=== PATIENT | male | born 1955 | race Caucasian/White ===

== ENCOUNTER 2017-01-03 12:47 | Inpatient (IN) | payer OTHER ==
[~2017-01-03] VITALS: Wt 78.5 kg
[2017-01-03] MEDS ORDERED: ASPIRIN 325 MG TAB PO STA (15:15)
[2017-01-03 15:39] LABS: ADD SCAN DIFF NO
[2017-01-03 15:43] LABS: ABNORMAL IP MESSAGE 1; HEMOGLOBIN 14.1 g/dl (14.0-18.0); MEAN CORPUSCULAR HEMOGLOBIN 31.5 pg (29.0-33.0); MEAN CORPUSCULAR HGB CONC 35.3 g/dl (32.0-37.0); MEAN CORPUSCULAR VOLUME 89.3 fl (82.0-101.0); MEAN PLATELET VOLUME 13.8 fl (7.4-10.4); PLATELET COUNT 111 10^3/UL (140-415); RED BLOOD COUNT 4.48 10^6/ul (4.70-6.10); RED CELL DISTRIBUTION WIDTH 12.4 % (11.5-14.5)
--- NOTE | 2017-01-03 15:48 | RADRPT ---
PROCEDURE: XR Chest. CLINICAL INDICATION: Chest pain. TECHNIQUE: Single frontal view. COMPARISON: None. FINDINGS: There is mild left basilar atelectasis. The lungs are otherwise clear. The heart size is normal. There is no pleural effusion. There is no pneumothorax. IMPRESSION: 1. Mild left basilar atelectasis. 2. Otherwise normal chest x-ray. RPTAT: QQ .Jarod Bui MD, MD Date Time Electronically viewed and signed by .Jarod Bui MD, on 01/03/2017 15:48 .R/
--- NOTE | 2017-01-03 15:52 | ERA ---
ER Documentation Chief Complaint Date/Time DATE: 01/03/17 TIME: 15:49 Chief Complaint PALPITATION AND SOB WITH GEN WEAKNESS WITH NEW ONSET A FIB ON EKG HPI This 61-year-old male presents with palpitations, chest pressure, some mild shortness of breath. He initially presented to his doctor's office and was sent to the ER after his EKG revealed A. fib with RVR. He states that he only has chest pressure but no shortness of breath. He also has no nausea. ROS All systems reviewed and are negative except as per history of present illness. Medications Home Meds Reported Medications Insulin Glargine* (Lantus*) 100 Unit/Ml Soln, 23 UNIT SC QHS, #1 VIAL 01/03/17 Miconazole Nitrate* (Miconazole Nitrate*) 2% - 15 Gm Cr, 1 APPLIC TOP BID Y for AFFECTED AREA, TUB 01/03/17 Naproxen* (Naproxen*) 375 Mg Tablet, 375 MG PO BID, TAB 01/03/17 Omeprazole* (Omeprazole*) 20 Mg Capsule.dr, 20 MG PO DAILY, #30 CAP 01/03/17 Glipizide* (Glipizide*) 10 Mg Tablet, 10 MG PO BEFORE MEALS, TAB TID 01/03/17 Sitagliptin* (Januvia*) 100 Mg Tablet, 100 MG PO DAILY, #30 TAB 01/03/17 Lisinopril* (Lisinopril*) 10 Mg Tablet, 10 MG PO DAILY, #30 TAB 01/03/17 Metformin Hcl* (Metformin Hcl*) 1,000 Mg Tablet, 1000 MG PO WITH BREAKFAST DINNE , #60 TAB 01/03/17 Simvastatin* (Zocor*) 20 Mg Tablet, 20 MG PO QHS, #30 TAB 01/03/17 Discontinued Reported Medications Miconazole Nitrate* (Miconazole*) 2% - 45 Gm Cr, 1 APPFUL VAGINAL HS, #1 TUB 01/03/17 Allergies Allergies: Coded Allergies: No Known Allergy (Unverified , 01/03/17) PMhx/Soc History of Surgery: No Anesthesia Reaction: No Hx Neurological Disorder: No Hx Respiratory Disorders: No Hx Cardiac Disorders: Yes (HTN) Hx Psychiatric Problems: No Hx Miscellaneous Medical Probl: Yes (DM) Hx Alcohol Use: No Hx Substance Use: No Hx Tobacco Use: No Smoking Status: Never smoker Physical Exam Vitals Vital Signs Date Time Temp Pulse Resp B/P Pulse Ox O2 Delivery O2 Flow Rate FiO2 01/03/17 18:40 98.7 76 21 118/74 99 Room Air 01/03/17 17:49 74 20 114/84 96 Room Air 01/03/17 12:51 98.8 85 20 113/68 98 Physical Exam Const: [] Mild distress Head: Atraumatic Eyes: Normal Conjunctiva ENT: Normal External Ears, Nose and Mouth. Neck: Full range of motion..~ No meningismus. Resp: Clear to auscultation bilaterally Cardio: Regular rate and rhythm, no murmurs Abd: Soft, non tender, non distended. Normal bowel sounds Skin: No petechiae or rashes Back: No midline or flank tenderness Ext: No cyanosis, or edema Neur: Awake and alert and oriented 3, no focal deficits Psych: Normal Mood and Affect Result Diagram: 01/03/17 1530 01/03/17 1530 Results 24 hrs Laboratory Tests Test 01/03/17 15:30 White Blood Count 8.010^3/ul Red Blood Count 4.4810^6/ul Hemoglobin 14.1g/dl Hematocrit 40.0% Mean Corpuscular Volume 89.3fl Mean Corpuscular Hemoglobin 31.5pg Mean Corpuscular Hemoglobin Concent 35.3g/dl Red Cell Distribution Width 12.4% Platelet Count 44525^3/UL Mean Platelet Volume 13.8fl Neutrophils % 63.0% Band Neutrophils % 1.0% Lymphocytes % 25.0% Monocytes % 7.0% Eosinophils % 4.0% Neutrophils # 5.010^3/ul Lymphocytes # 2.010^3/ul Monocytes # 0.610^3/ul Eosinophils # 0.310^3/ul Platelet Estimate PLT APPEAR ADEQUATE Prothrombin Time 13.4Sec Prothrombin Time Ratio 1.0 INR International Normalized Ratio 1.02 Activated Partial Thromboplast Time 27.1Sec Sodium Level 137mmol/L Potassium Level 4.3mmol/L Chloride Level 100mmol/L Carbon Dioxide Level 22mmol/L Anion Gap 19 Blood Urea Nitrogen 23mg/dl Creatinine 0.72mg/dl Glucose Level 207mg/dl Calcium Level 9.0mg/dl Creatine Kinase 86IU/L Creatine Kinase Index 5.0 Creatinine Kinase MB (Mass) 4.27ng/ml Troponin I < 0.012ng/ml B-Type Natriuretic Peptide 450PG/ML Current Medications Medications (Trade) Dose Ordered Sig/Laila Route PRN Reason Start Time Stop Time Status Last Admin Dose Admin Aspirin (Aspirin) 325 mg ONCE STAT PO 01/03/17 15:15 01/03/17 15:21 DC 01/03/17 15:39 Ondansetron HCl (Zofran Inj) 4 mg ER BRIDGE PRN IV NAUSEA AND/OR VOMITING 01/03/17 17:30 01/04/17 17:29 Acetaminophen (Tylenol Tab) 650 mg ER BRIDGE PRN PO MILD PAIN/FEVER 01/03/17 17:30 01/04/17 17:29 Procedures/MDM New onset undiagnosed A. fib and chest pain. Patient was in normal sinus rhythm in the ER. However EKG with patient's name and identifying information is provided from his doctor's office and is indeed A. fib with RVR. Patient does still have chest pressure as well. Was given 325 mg aspirin. No signs of serious congestive heart failure. Spoke with patient and family. Spoke with Dr. Hassan is admitting to telemetry. EKG interpretation (from office): A. fib with RVR, rate of 148, left axis deviation, no ST or T-wave changes concerning for acute ischemia. EKG interpretation #1: Normal sinus rhythm rate of 83, left axis deviation, no ST or T-wave changes concerning for acute ischemia. Chest x-ray interpretation: I see no acute process. I see no pulmonary edema, no infiltrates, pneumothorax, no fractures. Departure Diagnosis: Primary Impression: New onset a-fib Additional Impressions: Chest pain Thrombocytopenia Condition: Serious MAVERICK MORATAYA DO Jan 03, 2017 15:52
[2017-01-03 16:04] LABS: INR 1.02; PROTIME 13.4 Sec (12.2-14.2)
[2017-01-03 16:05] LABS: PARTIAL THROMBOPLASTIN TIME 27.1 Sec (25.0-35.0)
[2017-01-03 16:10] LABS: ANION GAP 19 (8-16); BLOOD UREA NITROGEN 23 mg/dl (7-20); CARBON DIOXIDE 22 mmol/L (21-31); CHLORIDE 100 mmol/L (97-110); CREATININE 0.72 mg/dl (0.61-1.24); GLUCOSE 207 mg/dl (70-220); POTASSIUM 4.3 mmol/L (3.5-5.1); SODIUM 137 mmol/L (135-144)
[2017-01-03 16:11] LABS: CREATINE KINASE 86 IU/L (23-200)
[2017-01-03 16:21] LABS: B-TYPE NATRIURETIC PEPTIDE 450 PG/ML (0-125)
[2017-01-03 16:22] LABS: TROPONIN-I < 0.012 ng/ml (0.00-0.12)
[2017-01-03 16:23] LABS: CK-MB 4.27 ng/ml (0.0-2.4)
[2017-01-03] MEDS ORDERED: SIMV20TA PO (16:34)
[2017-01-03 16:35] LABS: EOSINOPHILS # 0.3 10^3/ul (0.0-0.5); MONOCYTE # 0.6 10^3/ul (0.3-0.9)
[2017-01-03] MEDS ORDERED: LISI10TA2 PO (16:35)
[2017-01-03] MEDS ORDERED: METF1000 PO (16:35)
[2017-01-03 16:36] LABS: PLATELET ESTIMATE PLT APPEAR ADEQUATE
[2017-01-03] MEDS ORDERED: SITA100T8 PO (16:36)
[2017-01-03] MEDS ORDERED: GLIP-95 PO (16:37)
[2017-01-03] MEDS ORDERED: OMEP20CA16 PO (16:38)
[2017-01-03] MEDS ORDERED: NAPR-685 PO (16:38)
[2017-01-03] MEDS ORDERED: MCN2C47 VAGINAL (16:40)
[2017-01-03] MEDS ORDERED: MCN2C15 TOP (16:40)
[2017-01-03] MEDS ORDERED: LANT3I SC (16:42)
[2017-01-03] MEDS ORDERED: ACETAMINOPHEN 325 MG TAB PO PRN (17:30)
[2017-01-03] MEDS ORDERED: ONDANSETRON 4 MG INJ IV PRN (17:30)
[2017-01-04] VITALS (7 sets, daily range): BP systolic 131–147; BP diastolic 81–86; PULSE 62–86; RESP 16–18; TEMP 98.3
[2017-01-04 04:59] LABS: TROPONIN-I 0.013 ng/ml (0.00-0.12)
[2017-01-04 05:01] LABS: CK-MB 2.43 ng/ml (0.0-2.4)
[2017-01-04] MEDS ORDERED: NITROGLYCERIN (SL) 0.4 MG TAB SL PRN (09:00)
[2017-01-04] MEDS ORDERED: NACL 0.9% 3 ML SYG IV SCH (09:00)
[2017-01-04] MEDS ORDERED: morphine 2 MG INJ IV PRN (09:00)
[2017-01-04] MEDS ORDERED: ONDANSETRON 4 MG INJ IV PRN (09:00)
[2017-01-04] MEDS ORDERED: ENOXAPARIN 40 MG/0.4 ML SYG SC SCH (09:00)
[2017-01-04] MEDS ORDERED: ASPIRIN 81 MG TAB PO SCH (09:00)
[2017-01-04] MEDS ORDERED: MICONAZOLE 2% 30 GM CR TOP PRN (09:00)
[2017-01-04] MEDS ORDERED: ACETAMINOPHEN 325 MG TAB PO PRN (09:00)
[2017-01-04] MEDS ORDERED: GLUCOSE GEL 15 GRAM TUBE PO PRN ×2 (10:00)
[2017-01-04] MEDS ORDERED: GLUCAGON 1 MG INJ IM PRN (10:00)
[2017-01-04] MEDS ORDERED: GLUCOSE GEL 15 GRAM TUBE BUCCAL PRN (10:00)
[2017-01-04] MEDS ORDERED: DEXTROSE 50% 50 ML SYRINGE IV PRN ×2 (10:00)
[2017-01-04] MEDS ORDERED: LINAGLIPTIN 5 MG TABLET PO SCH (11:00)
[2017-01-04] MEDS ORDERED: PANTOPRAZOLE (EC) 40 MG TAB PO SCH (11:00)
[2017-01-04] MEDS ORDERED: LISINOPRIL 10 MG TAB PO SCH (11:00)
[2017-01-04 13:37] LABS: ADD SCAN DIFF NO
[2017-01-04 13:41] LABS: ABNORMAL IP MESSAGE 1; BASOPHILS % 0.4 % (0.0-2.0); EOSINOPHILS # 0.1 10^3/ul (0.0-0.5); EOSINOPHILS % 2.1 % (0.0-7.0); HEMATOCRIT 42.2 % (42.0-52.0); HEMOGLOBIN 14.8 g/dl (14.0-18.0); LYMPHOCYTES # 1.9 10^3/ul (0.8-2.9); LYMPHOCYTES % 28.4 % (15.0-51.0); MEAN CORPUSCULAR HEMOGLOBIN 31.3 pg (29.0-33.0); MEAN CORPUSCULAR HGB CONC 35.1 g/dl (32.0-37.0); MEAN CORPUSCULAR VOLUME 89.2 fl (82.0-101.0); MONOCYTE # 0.5 10^3/ul (0.3-0.9); MONOCYTES % 7.4 % (0.0-11.0); NEUTROPHIL # 4.1 10^3/ul (1.6-7.5); NEUTROPHILS % 61.3 % (39.0-77.0); PLATELET COUNT 101 10^3/UL (140-415); RED BLOOD COUNT 4.73 10^6/ul (4.70-6.10); RED CELL DISTRIBUTION WIDTH 12.4 % (11.5-14.5); WHITE BLOOD COUNT 6.7 10^3/ul (4.8-10.8)
[2017-01-04 14:00] LABS: ALANINE AMINOTRANSFERASE 39 IU/L (13-69); ALBUMIN 4.3 g/dl (3.3-4.9); ALKALINE PHOSPHATASE 77 IU/L (42-121); ANION GAP 19 (8-16); ASPARTATE AMINO TRANSFERASE 25 IU/L (15-46); BILIRUBIN,INDIRECT 0.4 mg/dl (0-1.1); BILIRUBIN,TOTAL 0.4 mg/dl (0.2-1.3); BLOOD UREA NITROGEN 16 mg/dl (7-20); CALCIUM 9.9 mg/dl (8.4-10.2); CARBON DIOXIDE 29 mmol/L (21-31); CHLORIDE 98 mmol/L (97-110); CHOL/HDL RATIO 4.1 RATIO; CHOLESTEROL 170 mg/dl (100-200); CREATINE KINASE 57 IU/L (23-200); CREATININE 0.54 mg/dl (0.61-1.24); GLUCOSE 124 mg/dl (70-220); HDL CHOLESTEROL 41 mg/dl (30-78); MAGNESIUM 1.5 mg/dl (1.7-2.5); POTASSIUM 4.4 mmol/L (3.5-5.1); SODIUM 142 mmol/L (135-144); TOTAL PROTEIN 7.6 g/dl (6.1-8.1); TRIGLYCERIDES 177 mg/dl (0-149)
[2017-01-04 14:12] LABS: CK-MB 2.68 ng/ml (0.0-2.4); TROPONIN-I < 0.012 ng/ml (0.00-0.12)
[2017-01-04] MEDS ORDERED: MAGNESIUM SULFATE 2 GM/50 ML 50 ML IVPB ONE (14:30)
--- NOTE | 2017-01-04 14:36 | PN ---
Date/Time of Note Date/Time of Note DATE: 01/04/17 TIME: 14:31 Assessment/Plan VTE Prophylaxis VTE Prophylaxis Intervention: LMWH Lines/Catheters IV [facility] [place] Assessment/Plan Chief Complaint/Hosp Course Assessment and plan: 61-year-old male presenting with palpitations, sent in by primary doctor with atrial fibrillation with RVR, past history of diabetes and hypertension. 1. Chest pain/palpitations: Improved presently. Has ruled out for acute coronary syndrome. -We will get cardiology consult, follow-up echocardiogram results. Pain control medications as needed. 2. Diabetes: We will follow-up A1c, sliding scale insulin, Lantus 3. GI: PPI 4. Attention: Stable, continue current cardiac medications. Problems: Subjective 24 Hr Interval Summary Free Text/Dictation Patient has less chest pain and palpitations present. Asking for work excuse and when he can go home. Exam/Review of Systems Vital Signs Vitals Vital Signs Date Time Temp Pulse Resp B/P Pulse Ox O2 Delivery O2 Flow Rate FiO2 01/04/17 12:22 99.2 74 16 131/86 97 Room Air Intake and Output 01/03/17 01/03/17 01/04/17 15:00 23:00 07:00 Output Total 400 ml Balance -400 ml Exam Const: [] Sitting up in bed, at bedside, no acute distress Head: Atraumatic Eyes: Normal Conjunctiva ENT: Normal External Ears, Nose and Mouth. Neck: Full range of motion..~ No meningismus. Resp: Clear to auscultation bilaterally Cardio: Regular rate and rhythm, no murmurs Abd: Soft, non tender, non distended. Normal bowel sounds Skin: No petechiae or rashes Back: No midline or flank tenderness Ext: No cyanosis, or edema Neur: Awake and alert and oriented 3, no focal deficits Psych: Normal Mood and Affect Results Result Diagram: 01/04/17 1248 01/04/17 1248 Results 24 hrs Laboratory Tests Test 01/03/17 15:30 01/04/17 04:20 01/04/17 12:10 01/04/17 12:48 White Blood Count 8.0 6.7 Red Blood Count 4.48 L 4.73 Hemoglobin 14.1 14.8 Hematocrit 40.0 L 42.2 Mean Corpuscular Volume 89.3 89.2 Mean Corpuscular Hemoglobin 31.5 31.3 Mean Corpuscular Hemoglobin Concent 35.3 35.1 Red Cell Distribution Width 12.4 12.4 Platelet Count 111 L 101 L Mean Platelet Volume 13.8 H 14.0 H Neutrophils % 63.0 61.3 Band Neutrophils % 1.0 Lymphocytes % 25.0 28.4 Monocytes % 7.0 7.4 Eosinophils % 4.0 2.1 Neutrophils # 5.0 4.1 Lymphocytes # 2.0 1.9 Monocytes # 0.6 0.5 Eosinophils # 0.3 0.1 Platelet Estimate PLT APPEAR ADEQUATE Prothrombin Time 13.4 Prothrombin Time Ratio 1.0 INR International Normalized Ratio 1.02 Activated Partial Thromboplast Time 27.1 Sodium Level 137 142 Potassium Level 4.3 4.4 Chloride Level 100 98 Carbon Dioxide Level 22 29 Anion Gap 19 H 19 H Blood Urea Nitrogen 23 H 16 Creatinine 0.72 0.54 L Glucose Level 207 124 # Calcium Level 9.0 9.9 Creatine Kinase 86 80 57 Creatine Kinase Index 5.0 3.0 4.7 Creatinine Kinase MB (Mass) 4.27 H 2.43 H 2.68 H Troponin I < 0.012 0.013 < 0.012 B-Type Natriuretic Peptide 450 H Bedside Glucose 95 Basophils % 0.4 Nucleated Red Blood Cells % 0.0 Basophils # 0.0 Nucleated Red Blood Cells # 0.0 Hemoglobin A1c 7.2 H Magnesium Level 1.5 L Total Bilirubin 0.4 Direct Bilirubin 0.00 Indirect Bilirubin 0.4 Aspartate Amino Transf (AST/SGOT) 25 Alanine Aminotransferase (ALT/SGPT) 39 Alkaline Phosphatase 77 Total Protein 7.6 Albumin 4.3 Globulin 3.30 H Albumin/Globulin Ratio 1.30 Triglycerides Level 177 H Cholesterol Level 170 LDL Cholesterol, Calculated 94 HDL Cholesterol 41 Cholesterol/HDL Ratio 4.1 Thyroid Stimulating Hormone (TSH) Pending Medications Medications Current Medications Ondansetron HCl (Zofran Inj) 4 mg Q6H PRN IV NAUSEA AND/OR VOMITING; Start at 09:00 Aspirin (Aspirin) 81 mg DAILY PO Last administered on 01/04/17t 09:37; Admin Dose 81 MG; Start 01/04/17 at 09:00 Nitroglycerin (Nitroglycerin (Sl Tab) 0.4 Mg) 1 tab Q5M PRN SL CHEST PAIN; Start 01/04/17 at 09:00 Acetaminophen (Tylenol Tab) 650 mg Q6H PRN PO PAIN LEVEL 1-3 OR FEVER; Start at 09:00 Morphine Sulfate (morphine) 2 mg Q4H PRN IV PAIN LEVEL 7-10; Start 01/04/17 at 09:00 Enoxaparin Sodium (Lovenox) 40 mg DAILY SC Last administered on 01/04/17 09:38 ; Admin Dose 40 MG; Start 01/04/17 at 09:00 Insulin Glargine (Lantus) 23 unit QHS SC ; Start 01/04/17 at 21:00 Lisinopril (Zestril) 10 mg DAILY PO Last administered on 01/04/17 10:44; Admin Dose 10 MG; Start 01/04/17 at 11:00 Miconazole Nitrate (Miconazole 2% Cr) 1 applic BID PRN TOP AFFECTED AREA; Start 01/04/17 at 09:00 Pantoprazole (Protonix Tab) 40 mg DAILY@06 PO Last administered on 01/04/17 10 :42; Admin Dose 40 MG; Start 01/04/17 at 11:00 Atorvastatin Calcium (Lipitor) 10 mg DAILY@21 PO ; Start 01/04/17 at 21:00 Linagliptin (Tradjenta) 5 mg DAILY PO ; Start 01/04/17 at 11:00 Miscellaneous Information 1 ea NOTE XX ; Start 01/04/17 at 10:00 Glucose (Glutose) 15 gm Q15M PRN PO DECREASED GLUCOSE; Start 01/04/17 at 10:00 Glucose (Glutose) 22.5 gm Q15M PRN PO DECREASED GLUCOSE; Start 01/04/17 at 10: 00 Dextrose (D50w Syringe) 25 ml Q15M PRN IV DECREASED GLUCOSE; Start 01/04/17 at 10:00 Dextrose (D50w Syringe) 50 ml Q15M PRN IV DECREASED GLUCOSE; Start 01/04/17 at 10:00 Glucagon (Glucagen) 1 mg Q15M PRN IM DECREASED GLUCOSE; Start 01/04/17 at 10:00 Glucose 15 gm 15 gm Q15M PRN BUCCAL DECREASED GLUCOSE; Start 01/04/17 at 10:00 Magnesium Sulfate (Magnesium Sulfate 2 Gm/50 ml) 50 ml @ 25 mls/hr ONCE ONCE IVPB ; Start 01/04/17 at 14:30; Stop 01/04/17 at 16:29 MINESH TINOCO Jan 04, 2017 14:36
[2017-01-04 15:32] LABS: CREATINE KINASE 55 IU/L (23-200)
[2017-01-04 15:43] LABS: CK-MB 2.41 ng/ml (0.0-2.4); TROPONIN-I < 0.012 ng/ml (0.00-0.12)
--- NOTE | 2017-01-04 15:57 | RADRPT ---
Echocardiogram Report Patient Name: SUMEET STOLL Gender: Male Date: 1955 Study Date: 04-Jan-2017 [employer] [employer] Clerk: Sharif [facility] Location: 3303 Ref. Physician: JULIETTE CHARLTON Quality: Adequate Procedures: Transthoracic echocardiogram with complete 2D, M-Mode, and doppler examination. Indications: Atrial Fibrillation. Chest Pain. 2D/M Mode Doppler Measurement Value Normal Ranges Measurement Value Normal Ranges LVIDd 2D 4.1 3.5 - 5.6 cm AV Peak Mynor 1.4 m/sec LVIDs 2D 2.8 2.1 - 4.1 cm AV Peak PG 8.0 mmHg LVPWd 2D 1.2 0.6 - 1.1 cm LVOT Peak Mynor 1.1 m/sec IVSd 2D 1.3 0.6 - 1.1 cm LVOT Peak PG 4.7 mmHg AoR Diam 2D 3.2 2.0 - 3.7 cm MV E Peak Mynor 0.6 m/sec EDV 2D 75.7 cm3 MV A Peak Mynor 0.9 m/sec ESV 2D 22.2 cm3 MV E/A 0.7 LA Dimen 2D 4.4 2.3 - 4.0 cm MV Decel Time 259 msec MV Decel [place] 2 MV E/A 0.7 Findings Left Ventricle: Normal left ventricular systolic function. Normal left ventricular cavity size. Mild concentric left ventricular hypertrophy. Ejection fraction is visually estimated at 60 %. Tissue Doppler/Mitral Doppler indices are consistent with impaired relaxation (Stage I diastolic dysfunction). Right Ventricle: Normal right ventricular size. Normal right ventricular systolic function. Left Atrium: There is mild enlargement of left atrium. Right Atrium: The right atrium is normal in size. Mitral Valve: Mild mitral leaflet calcification. Mild mitral annular calcification. Trace mitral regurgitation. Aortic Valve: Normal appearance of the aortic valve. No significant aortic stenosis or insufficiency. Tricuspid Valve: Normal appearance of the tricuspid valve. Unable to obtain RVSP due to minimal presence of tricuspid regurgitation. There is trace tricuspid regurgitation. Pulmonic Valve: Pulmonic valve not well visualized. There is trace pulmonic regurgitation. Pericardium: Normal pericardium with no significant pericardial effusion. Aorta: Normal aortic root. IVC: Normal size and normal respiratory collapse consistent with normal right atrial pressure. Conclusions Normal left ventricular systolic function. Normal left ventricular cavity size. Mild concentric left ventricular hypertrophy. Ejection fraction is visually estimated at 60 %. Tissue Doppler/Mitral Doppler indices are consistent with impaired relaxation (Stage I diastolic dysfunction). Mild mitral leaflet calcification. Mild mitral annular calcification. Trace mitral regurgitation. Normal appearance of the tricuspid valve. Unable to obtain RVSP due to minimal presence of tricuspid regurgitation. There is trace tricuspid regurgitation. Pulmonic valve not well visualized. There is trace pulmonic regurgitation. Electronically Signed By: Abel Nicholson 04-Jan-2017 15:57:28 -0700 Patient Name: SUMEET STOLL Study Date: 04-Jan-2017 [id number]
[2017-01-04] MEDS ORDERED: INSULIN ASPART [NOVOLOG] 3 ML PEN SC SCH (17:35)
[2017-01-04] MEDS ORDERED: metFORMIN 500 MG TAB PO SCH (17:35)
--- NOTE | 2017-01-04 17:52 | PDOCDIS ---
Discharge Instructions CONDITION Patient Condition: Stable HOME CARE INSTRUCTIONS: Diet Instructions: Low Fat /Cholesterol ACTIVITY: Activity Restrictions: Slowly Increase Activity FOLLOW UP/APPOINTMENTS Follow-up Plan Please take your medicines as prescribed. Please follow-up with your primary doctor in the clinic in 1 week MINESH TINOCO Jan 04, 2017 17:52
[2017-01-04] MEDS ORDERED: METO-448 PO (17:53)
[2017-01-04] MEDS ORDERED: NIT4 SL (17:53)
[2017-01-04] MEDS ORDERED: ASPI325T4 PO (17:53)
--- NOTE | 2017-01-04 18:04 | DS ---
Date/Time of Note Date/Time of Note DATE: 01/04/17 TIME: 17:58 Discharge Summary Admission/Discharge Info Admit Date/Time Jan 03, 2017 at 17:24 Discharge Date/Time Discharge Diagnosis 1. Chest pain/palpitations:Has ruled out for acute coronary syndrome. 2. Diabetes 3. Hypertension Patient Condition: Stable Hospital Course 61-year-old male presented with palpitations, sent in by primary doctor with atrial fibrillation with RVR, past history of diabetes and hypertension. He was admitted to telemetry floor, seen by cardiology team. He had some changes made to his blood pressure medications. His heart rate was actually normal sinus rhythm while he was here in the hospital. Over the course of his hospitalization, his symptoms improved, he was able to ambulate, tolerated p.o. diet. His echocardiogram showed the following results: Conclusions Normal left ventricular systolic function. Normal left ventricular cavity size. Mild concentric left ventricular hypertrophy. Ejection fraction is visually estimated at 60 %. Tissue Doppler/Mitral Doppler indices are consistent with impaired relaxation (Stage I diastolic dysfunction). Mild mitral leaflet calcification. Mild mitral annular calcification. Trace mitral regurgitation. Normal appearance of the tricuspid valve. Unable to obtain RVSP due to minimal presence of tricuspid regurgitation. There is trace tricuspid regurgitation. Pulmonic valve not well visualized. There is trace pulmonic regurgitation. After getting clearance from cardiology team, he will be discharged home today in improved condition. Please see below for discharge medication list. Home Meds Active Scripts Aspirin (Aspirin Lite-Coat) 325 Mg Tablet, 325 MG PO DAILY, #30 TAB 2 Refills Prov:GABRIELE TINOCOP S. 01/04/17 Nitroglycerin* (Nitrostat*) 0.4 Mg Tab.subl, 1 TAB SL Q5M Y for CHEST PAIN, #10 Prov:MINESH TINOCO S. 01/04/17 Metoprolol Tartrate* (Lopressor*) 25 Mg Tab, 25 MG PO BID, #60 TAB 2 Refills Prov:MINESH TINOCO S. 01/04/17 Reported Medications Insulin Glargine* (Lantus*) 100 Unit/Ml Soln, 23 UNIT SC QHS, #1 VIAL 01/03/17 Miconazole Nitrate* (Miconazole Nitrate*) 2% - 15 Gm Cr, 1 APPLIC TOP BID Y for AFFECTED AREA, TUB 01/03/17 Naproxen* (Naproxen*) 375 Mg Tablet, 375 MG PO BID, TAB 01/03/17 Omeprazole* (Omeprazole*) 20 Mg Capsule.dr, 20 MG PO DAILY, #30 CAP 01/03/17 Glipizide* (Glipizide*) 10 Mg Tablet, 10 MG PO BEFORE MEALS, TAB TID 01/03/17 Sitagliptin* (Januvia*) 100 Mg Tablet, 100 MG PO DAILY, #30 TAB 01/03/17 Lisinopril* (Lisinopril*) 10 Mg Tablet, 10 MG PO DAILY, #30 TAB 01/03/17 Metformin Hcl* (Metformin Hcl*) 1,000 Mg Tablet, 1000 MG PO WITH BREAKFAST DINNE , #60 TAB 01/03/17 Simvastatin* (Zocor*) 20 Mg Tablet, 20 MG PO QHS, #30 TAB 01/03/17 Discontinued Reported Medications Miconazole Nitrate* (Miconazole*) 2% - 45 Gm Cr, 1 APPFUL VAGINAL HS, #1 TUB 01/03/17 Primary Care Provider [facility] Time spent on discharge: > 30 minutes Pending Labs Laboratory Tests Test 01/04/17 04:20 01/04/17 12:10 01/04/17 12:48 01/04/17 14:44 Creatine Kinase 80IU/L (23-200) 57IU/L (23-200) 55IU/L (23-200) Creatine Kinase Index 3.0 4.7 4.4 Creatinine Kinase MB (Mass) 2.43ng/ml (0.0-2.4) 2.68ng/ml (0.0-2.4) 2.41ng/ml (0.0-2.4) Troponin I 0.013ng/ml (0.00-0.12) < 0.012ng/ml (0.00-0.12) < 0.012ng/ml (0.00-0.12) Bedside Glucose 95mg/dL (70-220) White Blood Count 6.710^3/ul (4.8-10.8) Red Blood Count 4.7310^6/ul (4.70-6.10) Hemoglobin 14.8g/dl (14.0-18.0) Hematocrit 42.2% (42.0-52.0) Mean Corpuscular Volume 89.2fl (82.0-101.0) Mean Corpuscular Hemoglobin 31.3pg (29.0-33.0) Mean Corpuscular Hemoglobin Concent 35.1g/dl (32.0-37.0) Red Cell Distribution Width 12.4% (11.5-14.5) Platelet Count 36682^3/UL (140-415) Mean Platelet Volume 14.0fl (7.4-10.4) Neutrophils % 61.3% (39.0-77.0) Lymphocytes % 28.4% (15.0-51.0) Monocytes % 7.4% (0.0-11.0) Eosinophils % 2.1% (0.0-7.0) Basophils % 0.4% (0.0-2.0) Nucleated Red Blood Cells % 0.0/100WBC (0.0-0.0) Neutrophils # 4.110^3/ul (1.6-7.5) Lymphocytes # 1.910^3/ul (0.8-2.9) Monocytes # 0.510^3/ul (0.3-0.9) Eosinophils # 0.110^3/ul (0.0-0.5) Basophils # 0.010^3/ul (0.0-0.1) Nucleated Red Blood Cells # 0.010^3/ul (0.0-0.0) Sodium Level 142mmol/L (135-144) Potassium Level 4.4mmol/L (3.5-5.1) Chloride Level 98mmol/L (97-110) Carbon Dioxide Level 29mmol/L (21-31) Anion Gap 19 (8-16) Blood Urea Nitrogen 16mg/dl (7-20) Creatinine 0.54mg/dl (0.61-1.24) Glucose Level 124mg/dl (70-220) Hemoglobin A1c 7.2% (0-5.9) Calcium Level 9.9mg/dl (8.4-10.2) Magnesium Level 1.5mg/dl (1.7-2.5) Total Bilirubin 0.4mg/dl (0.2-1.3) Direct Bilirubin 0.00mg/dl (0.00-0.20) Indirect Bilirubin 0.4mg/dl (0-1.1) Aspartate Amino Transf (AST/SGOT) 25IU/L (15-46) Alanine Aminotransferase (ALT/SGPT) 39IU/L (13-69) Alkaline Phosphatase 77IU/L (42-121) Total Protein 7.6g/dl (6.1-8.1) Albumin 4.3g/dl (3.3-4.9) Globulin 3.30g/dl (1.3-3.2) Albumin/Globulin Ratio 1.30 Triglycerides Level 177mg/dl (0-149) Cholesterol Level 170mg/dl (100-200) LDL Cholesterol, Calculated 94mg/dl HDL Cholesterol 41mg/dl (30-78) Cholesterol/HDL Ratio 4.1RATIO Thyroid Stimulating Hormone (TSH) 1.510MIU/L (0.465-4.680) MINESH TINOCO Jan 04, 2017 18:04
[2017-01-04] MEDS ORDERED: ATORVASTATIN 10 MG TAB PO SCH (21:00)
[2017-01-04] MEDS ORDERED: METOPROLOL 25 MG TAB PO SCH (21:00)
[2017-01-04] MEDS ORDERED: INSULIN GLARGINE [LANtus] 3 ML PEN SC SCH (21:00)
[2017-01-05] MEDS ORDERED: ACCU-CHEK XX SCH ×2 (02:00)
--- NOTE | 2017-01-05 03:44 | HP ---
DATE OF ADMISSION: 01/03/2017 Time seen: 2300 hours CHIEF COMPLAINT: Chest pain. HISTORY OF PRESENT ILLNESS: The patient is a 61-year-old male with a history of hypertension and diabetes, was sent from the primary care doctor after he was found to have atrial fibrillation. At the primary care doctor's, an EKG noted to show atrial fibrillation which is of new onset and as such he was instructed to come to the ER for further evaluation. The patient reports a sudden vague chest discomfort, somewhat pressure-like and sharp, there is no radiation. Denied any shortness of breath. No lightheadedness, diaphoresis, fever or chills, nausea, vomiting. When he presented to the emergency room, vital signs were stable. Laboratory values shows a BUN of 23. CBC and CMP are in acceptable range and his first set of troponins are negative. Chest x-ray shows a mild left basilar atelectasis as well as x-ray. He was given aspirin 325 mg x1 when he was in the ER. REVIEW OF SYSTEMS: Review of systems negative except for as in HPI. PAST MEDICAL HISTORY: As per HPI. PAST SURGICAL HISTORY: As per HPI. ALLERGIES: NO KNOWN DRUG ALLERGIES. MEDICATIONS: Home: 1. Glipizide. 2. Insulin. 3. Lisinopril. 4. Metformin. 5. 6. Prilosec. 7. Zocor. 8. Januvia. PHYSICAL EXAMINATION: GENERAL APPEARANCE: no acute distress. Answering questions appropriately. HEENT: Normocephalic. CARDIAC: Regular rate and rhythm. No extra sounds. LUNGS: Clear. ABDOMEN: Soft, nontender, nondistended. Positive bowel sounds. EXTREMITIES: No edema. NEUROLOGIC: No focal deficits. DATA: BUN 23. Otherwise CBC and CMP are within appropriate range. First troponins are negative. IMAGING: Chest x-ray with no acute abnormality. IMPRESSION: 1. New onset atrial fibrillation, currently in sinus rhythm. 2. Chest pain, need to rule out acute coronary syndrome. 3. History of hypertension. 4. History of diabetes. 5. History of dyslipidemia. PLAN: 1. Continue telemetry monitoring. 2. We will trend his troponins. 3. Will obtain a 2D echo. 4. He will be continued with his home medications which will include HAY inhibitor, insulin and potassium, among others. 5. Will adjust his medication as needed. 6. Will place a Cardiology consult. 7. Will check A1c and fasting lipids and TSH. 8. Further workup will be monitored closely. Dictated By: Didier Angulo MD /driss/elmo /Document#: [id number]
[2017-01-05] MEDS ORDERED: ASPIRIN 325 MG TAB PO SCH (09:00)
== END 2017-01-04 18:47 | disposition home or self-care (01) | DRG 310 ==
LOC: E/R 12:47 → MS3 17:24
PROVIDERS: ADMIT Internal Medicine; ATTEND Internal Medicine
DX: I48.0 Paroxysmal atrial fibrillation (principal); I10 Essential (primary) hypertension; E11.9 Type 2 diabetes mellitus without complications; R07.9 Chest pain, unspecified; Z79.4 Long term (current) use of insulin
CPT/HCPCS: 36415; 71010; 80048; 80053; 80061; 82550; 82553; 82962; 83036; 83735; 83880; 84443; 84484; 85025; 85610; 85730; 93005; 93306; J1650; J1815; J3475

== ENCOUNTER 2017-01-10 10:00 | Day surgery (SDC) | payer OTHER ==
[~2017-01-10] VITALS: Ht 165.1 cm; Wt 76.7 kg
[~2017-01-10 10:00] MED LIST: ASPI325T4 PO; GLIP-95 PO; LANT3I SC; LISI10TA2 PO; MCN2C15 TOP; METF1000 PO; METO-448 PO; NAPR-685 PO; NIT4 SL; OMEP20CA16 PO; SIMV20TA PO; SITA100T8 PO
[2017-01-10 10:53] VITALS: Ht 165.1 cm; Wt 76.7 kg
[2017-01-10] MEDS ORDERED: LIDOCAINE 4% SOLUTION 50 ML BTL ONE (11:25)
[2017-01-10 11:33] VITALS: BP 135/78; PULSE 59; RESP 27
[2017-01-10] MEDS ORDERED: FENTAnyl 50 MCG/ML VIAL ONE (12:10)
[2017-01-10] MEDS ORDERED: MIDAZOLAM 1 MG/ML 2 ML INJ ONE ×2 (12:10)
[2017-01-10 12:31] VITALS: BP 116/73; RESP 20
--- NOTE | 2017-01-11 04:33 | GILP ---
DATE OF PROCEDURE: 01/10/2017 PREOPERATIVE DIAGNOSIS: The patient presenting with history of a chronic abdominal discomfort, heartburn, rule out peptic ulcer disease and esophagitis. POSTOPERATIVE DIAGNOSIS: Multiple gastric erosions and several areas of a patchy gastritis. PROCEDURE PERFORMED: Esophagogastroduodenoscopy. SURGEON: Jett Wang MD. DESCRIPTION OF PROCEDURE: After the informed written consent was obtained the patient was asked to lay on the left lateral side. Three mg of Versed and 50 mcg of fentanyl was given as intravenous anesthesia. When the patient became somnolent an Olympus video upper endoscope was introduced into the oropharynx and then into the esophagus. The esophagus appeared normal. No esophagitis noted. An endoscope at this time was advanced into the stomach, several areas of erosions were noted. There is evidence of several areas of a patchy erythema noted as well. Duodenum showed minimal duodenitis in the bulb of the duodenum. No ulcers and no neoplasm noted in the duodenal. At this time the endoscope was withdrawn. On the way out no additional abnormalities were detected. Biopsy was done from the antrum, the lesser curvature and the fundus to rule out Helicobacter pylori infection, and at this time the procedure was terminated. PLAN: Recommend to wait for the pathology report. Dictated By: Jett Wang MD /driss/jeronimo /Document#: [id number] CC: Jett Wang MD; Liv Watkins MD, [id number] [place], [place];*[facility]*
--- NOTE | 2017-01-17 11:44 | GILP ---
DATE OF PROCEDURE: 01/10/2017 PROCEDURE: Colonoscopy. PREOP DIAGNOSIS: The patient is presenting with history of occult GI bleeding. The patient, at this time, is having a procedure for screening colonoscopy. Rule out colon polyps. POSTOP DIAGNOSIS: A 3-mm polyp noted at 28 cm from the anal verge. This was removed with the cold biopsy forceps. ASSESSMENT: After informed written consent was obtained, the patient was asked to lay in the left lateral position. Three mg Versed and 50 mcg of fentanyl were given as intravenous anesthesia. When the patient became somnolent, the Olympus video colonoscope was introduced into the rectum and advanced all the way to the cecum. Entire colon appeared normal. On the way out, a 3-mm flat polyp was noted at 28 cm from the anus. This was removed with the help of the cold biopsy forceps. On the way out, no additional abnormalities were detected, and the procedure was terminated. PLAN: Await for the pathology report. Dictated By: Jett Wang MD /driss/jason /Document#: [id number]
== END 2017-01-10 12:49 | disposition home or self-care (01) ==
LOC: GIL 10:00
PROVIDERS: ATTEND Internal Medicine Gastroenterology
DX: Z12.11 Encounter for screening for malignant neoplasm of colon (principal); K29.50 Unspecified chronic gastritis without bleeding; K63.5 Polyp of colon; E11.9 Type 2 diabetes mellitus without complications
CPT/HCPCS: 43239; 45380; 82962; 88305; 88312; J2250; J3010; Z7610